=== PATIENT | male | born 1955 | race Caucasian/White ===

== ENCOUNTER 2017-04-09 10:07 | Day surgery (SDC) | payer OTHER ==
[~2017-04-09] VITALS: Ht 177.8 cm; Wt 116.9 kg
[~2017-04-09 10:07] MED LIST: MOBIC15 MG PO; PERCOCET 5/31 TABLET PO; PRILOSEC10 MG; PRILOSEC20 MG PO; PROZAC40 MG PO; [UNRECOGNIZED DRUG - REMARK]; [UNRECOGNIZED DRUG - REMARK]
[2017-04-09 10:30] VITALS: BP 138/83
[2017-04-09 15:42] VITALS: BP 136/79
[2017-04-09 20:16] VITALS: BP 151/80
[2017-04-10] VITALS: BP 139/95
[2017-04-10 03:59] VITALS: BP 157/83
[2017-04-10 07:42] VITALS: BP 137/74
[2017-04-10] MEDS ORDERED: ASPIR-LOW81 MG PO (08:36)
== END 2017-04-10 11:07 | disposition home or self-care (01) ==
LOC: SDC 10:07 → 3EAST 13:25 → 2SOUTH 13:25 → ENRESERV 13:35 → 3EAST 13:39 → 2SOUTH 13:39 → 3EAST 13:39 → ENRESERV 13:53 → 3EAST 15:18
PROVIDERS: Orthopaedic Surgery
PROC: 0RRK0J7 Replacement of Left Shoulder Joint with Synthetic Substitute, Glenoid Surface, Open Approach (ICD-10-PCS; principal; 2017-04-09)
DX: M19.012 Primary osteoarthritis, left shoulder (principal); M75.122 Complete rotator cuff tear or rupture of left shoulder, not specified as traumatic; K21.9 Gastro-esophageal reflux disease without esophagitis; Z88.0 Allergy status to penicillin
CPT/HCPCS: 82948; 94799; C1776; G0378; J0131; J0330; J0690; J1100; J1885; J2250; J2405; J2795; J3010; J7050

== ENCOUNTER 2017-09-02 16:28 | Emergency (ER) | payer OTHER ==
[~2017-09-02] VITALS: Ht 177.8 cm; Wt 116.7 kg
[~2017-09-02 16:28] MED LIST changes: +ASPIR-LOW81 MG PO
[2017-09-02] MEDS ORDERED: PERCOCET 5/31 TABLET PO (18:40)
[2017-09-02 19:06] VITALS: BP 171/98
== END 2017-09-02 19:06 | disposition home or self-care (01) ==
LOC: EME 16:28
PROC: 0RSJXZZ Reposition Right Shoulder Joint, External Approach (ICD-10-PCS; principal; 2017-09-02)
DX: S43.084A Other dislocation of right shoulder joint, initial encounter (principal); W01.0XXA Fall on same level from slipping, tripping and stumbling without subsequent striking against object, initial encounter; J45.909 Unspecified asthma, uncomplicated; E11.9 Type 2 diabetes mellitus without complications; Z88.0 Allergy status to penicillin
CPT/HCPCS: 73030; 73060; 99281; 99285; J2270; J7030